=== PATIENT | male | born 1950 | race Caucasian/White ===

== ENCOUNTER 2018-09-09 08:53 | Day surgery (SDC) | payer MEDICARE, BC ==
[~2018-09-09] VITALS: Ht 177.8 cm; Wt 86.2 kg
[2018-09-09] VITALS (8 sets, daily range): BP systolic 108–128; BP diastolic 58–74
[~2018-09-09 08:53] MED LIST: ALLOPURINOL100 M1 ORAL; AMLODIPINE BESYL5 MG ORAL; ASPIR-LOW81 MG ORAL; CRESTOR20 MG ORAL; LISINOPRIL20 MG ORAL; NORCO 5-325 TA1 EACH ORAL; SYNTHROID25 MCG ORAL
[2018-09-09] MEDS ORDERED: ceFAZolin sod 2 GM in D5W 110 ML IV ONE (09:15)
--- NOTE | 2018-09-09 09:15 | History & Physical ---
History of Present Illness General Date patient seen: Sep 09, 2018 Present Illness HPI 68 year old male seen prior in office 05/25/18 for evaluation of left groin bulge. patient states that approximately 6 months prior to office visit he noted a growing left groin bulge. mild discomfort but fairly asymptomatic. no n/v/f/c. no obstructive symptoms. went to PCP who identified a left inguinal hernia. referred to Dr. Lambert for evaluation. Allergies: Coded Allergies: No Known Allergies (Verified Allergy, Mild, 12/18/08) Medication History Scheduled Allopurinol* (Allopurinol*), 100 MG ORAL BID, (Reported) Amlodipine Besylate* (Amlodipine Besylate*), 5 MG ORAL DAILY, (Reported) Aspirin* (Aspir-Low*), 81 MG ORAL DAILY, (Reported) Levothyroxine Sodium* (Synthroid*), 50 MCG ORAL DAILY, (Reported) Lisinopril (Lisinopril*), 20 MG ORAL BID, (Reported) Rosuvastatin Calcium* (Crestor*), 20 MG ORAL DAILY, (Reported) Scheduled PRN Hydrocodone Bit/Acetaminophen 5-325* ([place] 5-325*), 1 TAB ORAL jason PRN for For Pain, (Reported) Patient History History Provided By: Patient, Medical Record, PMD Healthcare decision maker N Resuscitation status Advanced Directive on File Past Medical/Surgical History Past Medical/Surgical History: (1) Left inguinal hernia Review of Systems Review of Symptoms General ROS: no weight loss or fever Psychological ROS: no depression or mood changes, no memory loss Ophthalmic ROS: no visual changes or eye irritation ENT ROS: no nasal congestion, hearing loss, dizziness Allergy and Immunology ROS: no allergic symptoms or urticaria Hematological and Lymphatic ROS: no swollen glands, unusual bleeding or bruising Endocrine ROS: no polyuria, polydipsia, weight changes, temperature intolerance Respiratory ROS: no cough, shortness of breath, or wheezing Cardiovascular ROS: no chest pain or dyspnea on exertion Gastrointestinal ROS: denies abdominal pain, bright red blood in stool. Musculoskeletal ROS: no myalgias or arthralgias Neurological ROS: no TIA or stroke symptoms Dermatological ROS: no new or changing skin lesions, rashes or pruritis Physical Exam Physical Exam General appearance: alert, cooperative, no distress, appears stated age Head: Normocephalic, without obvious abnormality, atraumatic Eyes: conjunctivae/corneas clear. PERRL, EOM's intact. Fundi benign Throat: Lips, mucosa, and tongue normal. Teeth and gums normal Neck: supple, symmetrical, trachea midline, no adenopathy, thyroid: not enlarged, symmetric, no tenderness/mass/nodules, no carotid bruit and no JVD Lungs: clear to auscultation bilaterally Heart: regular rate and rhythm, S1, S2 normal, no murmur, click, rub or gallop Abdomen: soft, non-tender. Bowel sounds normal. No masses, no organomegaly. reducible left inguinal hernia Extremities: extremities normal, atraumatic, no cyanosis or edema Pulses: 2+ and symmetric Skin: Skin color, texture, turgor normal. No rashes or lesions Neurologic: Grossly normal Assessment/Plan Problem List: (1) Left inguinal hernia Assessment & Plan: reducible left inguinal hernia plan for laparoscopic repair laparoscopic left inguinal hernia repair with mesh. possible right. npo iv fluids pre op abx consent ICD Codes: K40.90 - Unilateral inguinal hernia, without obstruction or gangrene , not specified as recurrent SNOMED: [id number] [facility] Hospital declaration INPATIENT level of care is warranted for this patient because patient is a 89 year old with who presents with suspicion of . I have a high level of concern because . Patient is at high risk for . Plan of care/treatment include . Patient care is expected to be greater than 2 midnights. OBSERVATION level of care is warranted for this patient. Patient is a 89 year old with who presents with . Patient will be admitted for 1 midnight, but if additional night(s) is/are necessary, patient will be converted to inpatient status for the entire hospitalization Disposition: Once the patient is stable to leave the hospital, I anticipate the patient will likely be discharged to the following environment: Estimated discharge date: I spent 70 minutes on this patient's case, and minutes was dedicated to counseling and/or care coordination. MIPS (Merit-based Incentive Payment System) Applicable CPT: 59246, 00333 CHECK ALL THAT ARE MET: Measure #5 (CHF): All ages. Prescribe HEIDI/ARB upon discharge for patients with left ventricular systolic dysfunction. If not, the reason is clearly documented in the medical chart. Measure #8 (CHF): All ages. Prescribe a beta martina upon discharge for patients with left ventricular systolic dysfunction. If not, the reason is clearly documented in the medical chart. Measure #47 Advance care plan or surrogate decision maker documented in the medical record. Measure #130 The provider has documented, updated, or reviewed the patients current medication list and has documented it in the patients note. Measure #374 (All): Send report to referring provider. Measure #407(Sepsis due to MSSA bacteremia): Age 18+ Patient treated with a beta-lactam antibiotic (Nafcillin, Oxacillin or Cefazolin) as definitive therapy. MEDICAL COMPLEXITY High complexity medical decision making (need 2/3 categories) Problem - need 4 points Acute/new problem with new plan for workup (4 points, 1 max) Acute/new problem without additional workup (3 points, 1 max) Unstable chronic problem actively being managed (2 point each, 2 max) Stable chronic problem actively being managed (1 point each, 2 max) Self-limited/transient process (constipation, muscle ache, etc) (1 point each , 2 max) Data - need 4 points Reviewed labs/imaging studies (1 points, 2 max) Independent review of imaging (EKG, xrays, etc) (2 points, 2 max) Discussed case with consult/other MD/RN (2 points, 2 max) High Risk - qualify if have one of the following: Severe exacerbation of acute problem, acute mental status change, IV narcotics , monitoring drug levels (vancomycin, INR, tacrolimus etc) Jean Lambert Sep 09, 2018 09:15
--- NOTE | 2018-09-09 09:17 | Pre-Procedure Note/Attestation ---
Pre-Procedure Note/Attestation Complete Prior to Procedure Planned Procedure: left Procedure Narrative: laparoscopic left inguinal hernia repair with mesh, possible right Indications for Procedure Pre-Operative Diagnosis: left inguinal hernia Attestation I attest that I discussed the nature of the procedure; its benefits; risks and complications; and alternatives (and the risks and benefits of such alternatives ), prior to the procedure, with the patient (or the patient's legal physician representative). I attest that, if there was a reasonable possibility of needing a blood transfusion, the patient (or the patient's legal physician representative) was given the [facility] standardized written summary, pursuant to the Bharathi Cesia Blood Safety Act ([place] Health and Safety Code # 1645, as amended). I attest that I re-evaluated the patient just prior to the surgery and that there has been no change in the patient's H&P, except as documented below: Jean Lambert Sep 09, 2018 09:17
[2018-09-09 09:47] LABS: BASOPHILS % (AUTO) 1.2 % (0.0-2.0); EOSINOPHILS % (AUTO) 3.7 % (0.0-3.0); HEMATOCRIT 44.9 % (42.0-52.0); HEMOGLOBIN 15.1 G/DL (14.2-18.0); LYMPHOCYTES % (AUTO) 22.7 % (20.0-45.0); MEAN CORPUSCULAR VOLUME 88 FL (80-99); MONOCYTES % (AUTO) 8.1 % (1.0-10.0); NEUTROPHILS % (AUTO) 64.3 % (45.0-75.0); PLATELET COUNT 232 K/UL (150-450); RED BLOOD COUNT 5.09 M/UL (4.70-6.10); RED CELL DISTRIBUTION WIDTH 12.3 % (11.6-14.8)
[2018-09-09 09:59] LABS: ANION GAP 9 mmol/L (5-15); BLOOD UREA NITROGEN 27 mg/dL (7-18); CALCIUM 9.5 MG/DL (8.5-10.1); CARBON DIOXIDE 26 MMOL/L (21-32); CHLORIDE 104 MMOL/L (98-107); CREATININE 1.5 MG/DL (0.55-1.30); POTASSIUM 4.4 MMOL/L (3.5-5.1); SODIUM 138 MMOL/L (136-145)
[2018-09-09 10:09] LABS: INR 1.1 (0.9-1.1)
[2018-09-09] MEDS ORDERED: Lidocaine 1% MPF 10mg/ml 5ml ONE (10:25)
[2018-09-09] MEDS ORDERED: Midazolam 2mg/2ml Inj ONE (10:25)
[2018-09-09] MEDS ORDERED: Propofol 200mg/20ml IV ONE (10:25)
[2018-09-09] MEDS ORDERED: fentaNYL 100 mcg/2 mL IV ONE ×2 (10:25→10:26)
--- NOTE | 2018-09-09 10:55 | Anethesia Preoperative Eval ---
Anesthesia Pre-op PMH/ROS General Date of Evaluation: Sep 09, 2018 Time of Evaluation: 10:55 Anesthesiologist: Lena Atwood CRNA ASA Score: ASA 2 Mallampati Score Class I : Soft palate, uvula, fauces, pillars visible Class II: Soft palate, uvula, fauces visible Class III: Soft palate, base of uvula visible Class IV: Only hard plate visible Mallampati Classification: Class II Surgeon: Petra Diagnosis: LEFT inguinal hernia Surgical Procedure: Laparoscopic left inguinal hernia repair with mesh Anesthesia History: none Social History: smoking Family History: no anesthesia problems Allergies: Coded Allergies: No Known Allergies (Verified Allergy, Mild, 12/18/08) Medications: see eMAR Patient NPO?: Yes NPO Date: Sep 09, 2018 NPO Time: 00:00 Past Medical History Cardiovascular: Reports: HTN; Denies: CAD, MS, valve dz, arrhythmia, other Pulmonary: Denies: asthma, COPD, MARIS, other Gastrointestinal/Genitourinary: Reports: GERD; Denies: CRI, ESRD, other Neurologic/Psychiatric: Reports: CVA; Denies: dementia, depression/anxiety, TIA, other Endocrine: Reports: hypothyroidism; Denies: DM, steroids, other HEENT: Reports: other - hearing loss; Denies: cataract (L), cataract (R), glaucoma, [place] (L), [place] (R) Hematology/Immune: Denies: anemia, DVT, bleeding disorder, other Musculoskeletal/Integumentary: Reports: other - Gout, ankle fracture; Denies: OA, RA, DJD, DDD, edema PMH Narrative: as above PSxH Narrative: ankle ORIF Anesthesia Pre-op Phys. Exam Physician Exam Last Vital Signs Date Time Temp Pulse Resp B/P (MAP) Pulse Ox O2 Delivery O2 Flow Rate FiO2 09/09/18 09:34 Room Air 09/09/18 09:31 97.6 80 20 117/74 96 Constitutional: NAD Neurologic: CN 2-12 intact Cardiovascular: RRR Respiratory: CTA Gastrointestinal: S/NT/ND Airway Exam Mallampati Score: Class III MO: full Neck: no limitations TMD: 3 FB ROM: full Teeth: broken Dentures: no upper, no lower Anesthesia Pre-op A/P Labs Hematology Test 09/09/18 09:35 White Blood Count 10.0 K/UL (4.8-10.8) Red Blood Count 5.09 M/UL (4.70-6.10) Hemoglobin 15.1 G/DL (14.2-18.0) Hematocrit 44.9 % (42.0-52.0) Mean Corpuscular Volume 88 FL (80-99) Mean Corpuscular Hemoglobin 29.8 PG (27.0-31.0) Mean Corpuscular Hemoglobin Concent 33.7 G/DL (32.0-36.0) Red Cell Distribution Width 12.3 % (11.6-14.8) Platelet Count 232 K/UL (150-450) Mean Platelet Volume 6.7 FL (6.5-10.1) Neutrophils (%) (Auto) 64.3 % (45.0-75.0) Lymphocytes (%) (Auto) 22.7 % (20.0-45.0) Monocytes (%) (Auto) 8.1 % (1.0-10.0) Eosinophils (%) (Auto) 3.7 % (0.0-3.0) H Basophils (%) (Auto) 1.2 % (0.0-2.0) Coagulation Test 09/09/18 09:35 Prothrombin Time 11.2 SEC (9.30-11.50) Prothromb Time International Ratio 1.1 (0.9-1.1) Activated Partial Thromboplast Time 28 SEC (23-33) Chemistry Test 09/09/18 09:35 Sodium Level 138 MMOL/L (136-145) Potassium Level 4.4 MMOL/L (3.5-5.1) Chloride Level 104 MMOL/L (98-107) Carbon Dioxide Level 26 MMOL/L (21-32) Anion Gap 9 mmol/L (5-15) Blood Urea Nitrogen 27 mg/dL (7-18) H Creatinine 1.5 MG/DL (0.55-1.30) H Estimat Glomerular Filtration Rate 46.3 mL/min (>60) Glucose Level 116 MG/DL (74-106) H Calcium Level 9.5 MG/DL (8.5-10.1) Studies Pre-op Studies: EKG - NSR Risk Assessment & Plan Assessment: ASA 2, ok to proceed Plan: GETA Status Change Before Surgery: No Pre-Antibiotics Drug: TBD Lena Atwood CRNA Sep 09, 2018 10:55
[2018-09-09] MEDS ORDERED: Bupivacaine w/Epi 0.5% 30ml Vial INJ ONE (10:58)
[2018-09-09] MEDS ORDERED: Bacitracin 50000 Units Vial ONE (10:59)
[2018-09-09] MEDS ORDERED: LR 1000ml ONE (11:00)
[2018-09-09] MEDS ORDERED: Sterile Water Irrig 1000ml IRRIG ONE (11:00)
[2018-09-09] MEDS ORDERED: Ketorolac 30mg Inj ONE (11:00)
[2018-09-09] MEDS ORDERED: Glycopyrrolate 0.2mg/ml 1ml Vial ONE (11:00)
[2018-09-09] MEDS ORDERED: NS Irrig 1000ml ONE (11:00)
[2018-09-09] MEDS ORDERED: Succinylcholine 20mg/ml 10ml vial ONE (11:07)
[2018-09-09] MEDS ORDERED: Rocuronium Bromide 50mg/5ml Inj IV ONE (11:07)
[2018-09-09] MEDS ORDERED: Neostigmine 1mg/ml 10ml Inj ONE (11:07)
--- NOTE | 2018-09-09 12:46 | Immediate Post-Op Evaluation ---
Immediate Post-Op Evalulation Immediate Post-Op Evalulation Procedure: LEFT inguinal hernia repair with mesh, laparoscopic Date of Evaluation: Sep 09, 2018 IV Fluids: LR 1000 ml Estimated Blood Loss: minimal Blood Pressure Systolic: 128 Blood Pressure Diastolic: 72 Pulse Rate: 82 Respiratory Rate: 12 O2 Sat by Pulse Oximetry: 99 Temperature (Fahrenheit): 97.0 Pain Score (1-10): 1 Nausea: No Vomiting: No Complications none Patient Status: awake, reacts, patent Hydration Status: adequate Drug: cefazolin 2 gm IV Given Within 1 Hr of Incision: Yes Time Given: 11:40 Lena Atwood CRNA Sep 09, 2018 12:46
--- NOTE | 2018-09-09 12:58 | Brief Operative Note ---
Immediate Post Operative Note Operative Note Pre-op Diagnosis: left inguinal hernia Procedure: laparoscopic left inguinal hernia repair with mesh Post-op Diagnosis: same as pre-op Surgeon: larry Anesthesiologist: Lena FERNANDES Anesthesia: general, local Specimen: none Complications: none Condition: stable Fluids: see records Estimated Blood Loss: minimal Drains: none Implant(s) used?: Yes - bard left large 3d mesh Jean Lambert Sep 09, 2018 12:58
[2018-09-09] MEDS ORDERED: Tylenol #3 tab (300mg/30mg) ORAL PRN (13:00)
[2018-09-09] MEDS ORDERED: HYDROmorphone 1mg/ml Carpuject SUBQ PRN (13:00)
[2018-09-09] MEDS ORDERED: D5 1/2NS 1,000 ML IV SCH (13:00)
[2018-09-09] MEDS ORDERED: Metoclopramide 10mg/2ml Inj IVP PRN (13:00)
[2018-09-09] MEDS ORDERED: HYDROcodone/Acetamin 5/325 tab ORAL PRN (13:00)
[2018-09-09] MEDS ORDERED: Hydromorphone 0.5mg/0.5ml inj IVP PRN (13:00)
--- NOTE | 2018-09-09 14:05 | 48 Hour Post Anesthesia Eval ---
Post Anesthesia Evaluation Procedure: LEFT inguinal hernia repair with mesh, laparoscopic Date of Evaluation: Sep 09, 2018 Time of Evaluation: 14:03 Blood Pressure Systolic: 128 0: 68 Pulse Rate: 76 Respiratory Rate: 20 Temperature (Fahrenheit): 97.6 O2 Sat by Pulse Oximetry: 98 Airway: patent Nausea: No Vomiting: No Pain Intensity: 1 Hydration Status: adequate Cardiopulmonary Status: stable Mental Status/LOC: patient returned to baseline Follow-up Care/Observations: n/a Post-Anesthesia Complications: none Follow-up care needed: ready to discharge Oskar Massey MD Sep 09, 2018 14:05
--- NOTE | 2018-09-09 18:45 | Operative Note - Dictated ---
DATE OF OPERATION: 09/09/2018 PREOPERATIVE DIAGNOSIS: Left inguinal hernia, initial reducible. POSTOPERATIVE DIAGNOSIS: Fcfsqpyr-sm-eheom size left inguinal hernia, indirect, reducible. OPERATION PERFORMED: Laparoscopic left inguinal hernia repair with mesh. ATTENDING SURGEON: Jean Lambert M.D. FLAVOR MAKER: None. ANESTHESIOLOGIST: Lena Atwood CRNA. ANESTHESIA: General CRYSTAL GROWER. ESTIMATED BLOOD LOSS: Minimal. IV FLUIDS: Please see Anesthesia records. COMPLICATIONS: None. DRAINS: None. SPECIMENS: None. WOUND CLASSIFICATION: Class I. IMPLANTS: Bard 3DMax, large size left, lot number [id number], reference #[id number], date of expiration 04/19/2023 as well as a Bard SorbaFix absorbable fixation system 30 packs, reference number #[id number], lot [id number], date of expiration 05/20/2020. INDICATIONS FOR PROCEDURE: The patient is a very pleasant 68-year-old male who was kindly referred to myself for evaluation of a left inguinal hernia. The patient states that approximately 6 months prior to being seen the in the office, he had noticed a left groin bulge, which was causing mild discomfort, but otherwise asymptomatic. On evaluation, he was identified to have a reducible left inguinal hernia, which indicated and recommended left inguinal hernia. Repair was indicated and recommended. The patient expressed understanding and consented to procedure, which was scheduled for 09/09/2018. OPERATIVE NOTE: The patient was taken to the operating room and placed on the operating table in supine position bilateral arms tucked. All bony prominences were well padded. SCDs were placed. Preoperative time-out was taken identifying the patient, procedure, operative staff, and surgical staff. The patient was given 2 g Ancef IV one hour prior to cut time. General anesthesia was induced. The patient was intubated. A Sharp catheter was inserted using standard sterile technique. The abdomen was clipped, prepped, and draped in standard surgical fashion. The left inguinal hernia was identified with bulging and reduced once the patient was comfortable. A local anesthetic was infiltrated to all skin incision port sites throughout the procedure for the patient's comfort. An infraumbilical incision was made using a fresh #11 scalpel. Incision was carried down to the fascia, which was elevated and incised. Entry into the abdomen was obtained using the open Oj technique. The laparoscope was inserted and the abdomen was insufflated to 12 to 15 mmHg. The patient tolerated the insufflation well. Laparoscope was inserted and the abdomen was inspected. The right upper quadrant was otherwise normal with some colon overlying the right lobe of the liver. The left upper quadrant identified a healthy left lobe of the liver and stomach. There was no right inguinal hernia identified. Pelvis was small and normal and in the left groin, there was a moderate-sized indirect left inguinal hernia with some sliding colon noted identified into an easily obtainable to small bowel. At this time, secondary trocars were placed under direct visualization beginning with a 5 mm right midabdominal port followed by 5 mm left midabdominal port. Approximately 2 cm above the hernia defect, an incision was made in the peritoneum, which was carried medially to the medial umbilical ligament and laterally towards the anterior superior iliac spine. A peritoneal flap was made and dissected medially to the pubic tubercle, Silverio's ligament and not too extensively laterally. At this time, the large hernia sac was slowly reduced and gentle dissection and electrocautery were used to dissect out the sac. The sac was completely reduced and once it was, the cord structures were easily identified and protected. At this time, hemostasis was noted and hernia was completely reduced and a large defect was identified with cord structures being noted. A Bard large left-sided mesh was inserted into the operative field and placed into appropriate positioning. Once this was placed, all hernia defect sites were appropriately covered and hernia mesh placement was satisfactory. Bard absorbable tacks were used to tack the mesh in the Silverio's ligament and medially. Following this, the peritoneum was reapproximated using the Bard absorbable tackers as well. At this time, satisfactory hernia repair was identified. We began the conclusion of our procedure. The abdomen was allowed to desufflate and secondary trocars were removed under direct visualization. The umbilical trocar site was removed. The umbilical trocar site and fascia was closed using a [id number] #0 Vicryl suture. The remaining skin incisions were all cleansed and reapproximated using 4-0 Monocryl subcutaneous interrupted sutures. Skin glue and Steri-Strips were applied. Both testicles were identified in the scrotal sac at the end of procedure. The patient tolerated the procedure well, was extubated, and taken to the postanesthetic care unit in stable condition. Jean Lambert M.D. DR: GIANNI JOB#: [id number] CC:
== END 2018-09-09 14:50 | disposition home or self-care (01) ==
LOC: SUR 08:53
DX: K40.90 Unilateral inguinal hernia, without obstruction or gangrene, not specified as recurrent (principal); K21.9 Gastro-esophageal reflux disease without esophagitis; I10 Essential (primary) hypertension; E03.9 Hypothyroidism, unspecified; M10.9 Gout, unspecified; H91.90 Unspecified hearing loss, unspecified ear; Z86.73 Personal history of transient ischemic attack (TIA), and cerebral infarction without residual deficits
CPT/HCPCS: 36415; 49650; 80048; 85025; 85610; 85730; 93005; C1781; J0330; J1885; J2250; J2405; J2704; J2710; J3010; 94003; 94150

== ENCOUNTER 2019-03-02 10:58 | Inpatient (IN) | payer MEDICARE, BC ==
[~2019-03-02] VITALS: Ht 177.8 cm; Wt 86.2 kg
--- NOTE | 2019-03-02 11:15 | NUR ---
ED Nurse Note: PT FROM HOME CAME IN DUE TO SOB LAST WEDNESDAY NIGHT AND WAS REFERRED BY DR LOPEZ TO GO TO ED FOR EVAL. DENIES CP OR SOB AT THIS TIME. PT IS AAO X4, AMBULATORTY WITH NON LABORED BREATHING. LUNGS ARE CLEAR. VSS.
[2019-03-02 11:36] VITALS: BP 134/62
[2019-03-02 12:28] LABS: EOSINOPHILS % (AUTO) 2.7 % (0.0-3.0); HEMATOCRIT 46.2 % (42.0-52.0); HEMOGLOBIN 15.5 G/DL (14.2-18.0); LYMPHOCYTES % (AUTO) 18.8 % (20.0-45.0); MEAN CORPUSCULAR VOLUME 90 FL (80-99); NEUTROPHILS % (AUTO) 69.6 % (45.0-75.0); PLATELET COUNT 218 K/UL (150-450); RED BLOOD COUNT 5.16 M/UL (4.70-6.10); RED CELL DISTRIBUTION WIDTH 12.8 % (11.6-14.8); WHITE BLOOD COUNT 10.8 K/UL (4.8-10.8)
[2019-03-02 12:30] LABS: ANION GAP 7 mmol/L (5-15); BLOOD UREA NITROGEN 25 mg/dL (7-18); CALCIUM 9.5 MG/DL (8.5-10.1); CARBON DIOXIDE 27 MMOL/L (21-32); CHLORIDE 105 MMOL/L (98-107); CREATININE 1.4 MG/DL (0.55-1.30); POTASSIUM 4.3 MMOL/L (3.5-5.1); SODIUM 139 MMOL/L (136-145)
--- NOTE | 2019-03-02 12:30 | NUR ---
ED Nurse Note: [employer] AT THE BED SIDE FOR CXR.
[2019-03-02 12:44] LABS: ALANINE AMINOTRANSFERASE 23 U/L (12-78); ALBUMIN 3.3 G/DL (3.4-5.0); ALBUMIN/GLOBULIN RATIO 0.8 (1.0-2.7); ALKALINE PHOSPHATASE 52 U/L (46-116); ASPARTATE AMINO TRANSFERASE 22 U/L (15-37); BILIRUBIN,TOTAL 0.4 MG/DL (0.2-1.0); CREATINE KINASE 97 U/L (26-308)
--- NOTE | 2019-03-02 13:10 | NUR ---
SPOKE TO [facility] REGSYED THE V/Q SCAN WILL TAKE 2 TO [address] H[address] TO GET ISOTOPE DR CALDERON HAS BEEN NOTIFIED
[2019-03-02 13:13] VITALS: BP 134/83
--- NOTE | 2019-03-02 13:13 | NUR ---
ED Nurse Note: PT IS CALM WITH NO DISTRESS. STILL DENIES ANY CP. PT IS AWARE OF HIS ADMISSION. VSS WILL CONTINUE TO ASSESS.
--- NOTE | 2019-03-02 13:28 | Diagnostic Imaging Report ---
Indication: Dyspnea Comparison: 12/18/2008 A single view chest radiograph was obtained. Findings: Basilar densities are present slightly worse on the right likely atelectasis. Lung volumes are low bilaterally. Heart size is borderline. IMPRESSION: Mild basal atelectasis
--- NOTE | 2019-03-02 14:35 | NUR ---
ED Nurse Note: REPORT GIVEN TO GINO KIM CHARGE OF TELEMETRY. ENDORSED NM VQ SCAN THAT IT WILL BE DONE IN THEIR UNIT D/T GETTING OF ISOTOPE. STATES NO BED YET. ER CHARGE NURSE WAS NOTIFIED.
--- NOTE | 2019-03-02 14:46 | Emergency Room Report ---
History of Present Illness General Chief Complaint: Dyspnea/Respdistress Source: Patient Present Illness HPI 68 yo Male presents ED for evaluation. Patient walks in for evaluation of shortness of breath. States that on Wednesday when he was going to bed he felt short of breath lasted for several minutes then resolved. States he has not felt short of breath since. Was seen by PMD yesterday and referred to ED for further evaluation. Denies shortness of breath now. Denies chest pain. Denies leg swelling. No other aggravating relieving factors. Denies any other associated symptoms Allergies: Coded Allergies: No Known Allergies (Verified Allergy, Mild, 12/18/08) Patient History Past Medical History: HTN, CVA/TIA Pertinent Family History: none Social History: Denies: smoking, alcohol use, drug use Immunizations: UTD Reviewed Nursing Documentation: PMH: Agreed; PSxH: Agreed Nursing Documentation-PMH Hx Cardiac Problems: Yes Hx Hypertension: Yes Hx Cancer: No Hx Gastrointestinal Problems: Yes Hx Neurological Problems: Yes Hx Cerebrovascular Accident: Yes - 1994 Review of Systems All Other Systems: negative except mentioned in HPI Physical Exam Vital Signs Date Time Temp Pulse Resp B/P (MAP) Pulse Ox O2 Delivery O2 Flow Rate FiO2 03/02/19 11:05 97.9 84 22 148/84 (105) 95 Room Air Sp02 EP Interpretation: reviewed, normal General Appearance: no apparent distress, alert, GCS 15, non-toxic Head: normocephalic, atraumatic Eyes: bilateral eye normal inspection, bilateral eye PERRL ENT: hearing grossly normal, normal pharynx, no angioedema, normal voice Neck: full range of motion, supple/symm/no masses Respiratory: chest non-tender, lungs clear, normal breath sounds, speaking full sentences Cardiovascular #1: regular rate, rhythm, no edema Cardiovascular #2: 2+ carotid (R), 2+ carotid (L), 2+ radial (R), 2+ radial (L) , 2+ dorsalis pedis (R), 2+ dorsalis pedis (L) Gastrointestinal: normal bowel sounds, non tender, soft, non-distended, no guarding, no rebound Rectal: deferred Genitourinary: normal inspection, no CVA tenderness Musculoskeletal: back normal, gait/station normal, normal range of motion, non- tender Neurologic: alert, oriented x3, responsive, motor strength/tone normal, sensory intact, speech normal Psychiatric: judgement/insight normal, memory normal, mood/affect normal, no suicidal/homicidal ideation Reflexes: 3+ bicep (R), 3+ bicep (L), 3+ tricep (R), 3+ tricep (L), 3+ knee (R) , 3+ knee (L) Lymphatic: no adenopathy Medical Decision Making Diagnostic Impression: Primary Impression: ACS (acute coronary syndrome) Additional Impression: Dyspnea Qualified Codes: R06.00 - Dyspnea, unspecified ER Course Hospital Course 68-year-old male presents ED complaining of shortness of breath Differential diagnoses include: WI/unstable angina, contusion, muscle strain, PTX, rib fracture Clinical course Patient placed on stretcher. on concierge receptionist. After initial history and physical I ordered labs, EKG, chest x-ray, labs reviewed- no leukocytosis, hb/hct stable, electrolytes ok, trop 0.191 EKG - NSR, twave inversions in lateral leads interpreted by me Chest x-ray- bilateral atelectasis, R>> L Given aspirin. Discussed findings with patient. Discussed findings with Dr. Sanchez. VQ scan ordered I. I feel this is a highly complex case requiring extensive working including EKG/Rhythm strip, Xray/CT/US, Blood/urine lab work, repeat exams while in ED, and administration of strong opiates/narcotics for pain control, admission to hospital or close patient follow up. Diagnosis - ACS, dyspnea admitted to telemetry in serious condition Labs Test 03/02/19 12:02 White Blood Count 10.8 K/UL (4.8-10.8) Red Blood Count 5.16 M/UL (4.70-6.10) Hemoglobin 15.5 G/DL (14.2-18.0) Hematocrit 46.2 % (42.0-52.0) Mean Corpuscular Volume 90 FL (80-99) Mean Corpuscular Hemoglobin 30.1 PG (27.0-31.0) Mean Corpuscular Hemoglobin Concent 33.6 G/DL (32.0-36.0) Red Cell Distribution Width 12.8 % (11.6-14.8) Platelet Count 218 K/UL (150-450) Mean Platelet Volume 7.1 FL (6.5-10.1) Neutrophils (%) (Auto) 69.6 % (45.0-75.0) Lymphocytes (%) (Auto) 18.8 % (20.0-45.0) Monocytes (%) (Auto) 8.0 % (1.0-10.0) Eosinophils (%) (Auto) 2.7 % (0.0-3.0) Basophils (%) (Auto) 1.0 % (0.0-2.0) Sodium Level 139 MMOL/L (136-145) Potassium Level 4.3 MMOL/L (3.5-5.1) Chloride Level 105 MMOL/L (98-107) Carbon Dioxide Level 27 MMOL/L (21-32) Anion Gap 7 mmol/L (5-15) Blood Urea Nitrogen 25 mg/dL (7-18) Creatinine 1.4 MG/DL (0.55-1.30) Estimat Glomerular Filtration Rate 50.1 mL/min (>60) Glucose Level 107 MG/DL (74-106) Calcium Level 9.5 MG/DL (8.5-10.1) Total Bilirubin 0.4 MG/DL (0.2-1.0) Aspartate Amino Transf (AST/SGOT) 22 U/L (15-37) Alanine Aminotransferase (ALT/SGPT) 23 U/L (12-78) Alkaline Phosphatase 52 U/L (46-116) Total Creatine Kinase 97 U/L (26-308) Creatine Kinase MB 2.0 NG/ML (0.0-3.6) Creatine Kinase MB Relative Index 2.0 Troponin I 0.191 ng/mL (0.000-0.056) Pro-B-Type Natriuretic Peptide 806 pg/mL (0-125) Total Protein 7.2 G/DL (6.4-8.2) Albumin 3.3 G/DL (3.4-5.0) Globulin 3.9 g/dL Albumin/Globulin Ratio 0.8 (1.0-2.7) EKG Diagnostic Results Rate: normal Rhythm: NSR ST Segments: other - twave inversions in lateral leads ASA given to the pt in ED: Yes Rhythm Strip Diag. Results EP Interpretation: yes Rhythm: NSR, no PVC's, no ectopy Chest X-Ray Diagnostic Results Chest X-Ray Diagnostic Results : Chest X-Ray Ordered: Yes # of Views/Limited/Complete: 1 View Indication: Shortness of Breath EP Interpretation: Yes Interpretation: no consolidation, no pneumothorax, other - bilateral atecltasis R >> L Impression: Other - atelectasis Electronically Signed by: Electronically signed by Thee Connors MD Last Vital Signs Date Time Temp Pulse Resp B/P (MAP) Pulse Ox O2 Delivery O2 Flow Rate FiO2 03/02/19 13:13 98.2 76 19 134/83 100 Room Air Status: improved Disposition: ADMITTED INPATIENT Condition: Serious Referrals: Issa Dias MD (PCP) Thee Connors MD Mar 02, 2019 14:46
--- NOTE | 2019-03-02 15:00 | NUR ---
ED Nurse Note: PT TRANSFERRED TO TELEMETRY UNIT VIA GURNEY. VSS. ALL BELONGINGS SENT.
[2019-03-02] MEDS ORDERED: HYDROcodone/Acetamin 5/325 tab ORAL PRN (15:15)
--- NOTE | 2019-03-02 15:34 | History & Physical ---
History and Physical History & Physicial episodic SOB ? chest tightness PH Remote CVA HTN HLP DM2 now in ER mild elevation Troponin ? Right basal crackles Dx Pulm emboli CHF CAD Plan per orders Dr Sutherland to jenny echo V/Q Scan # [id number] Issa Dias MD Mar 02, 2019 15:34
--- NOTE | 2019-03-02 15:51 | NUR ---
NURSE NOTES: patient received at 1515 pm. all belonging list reviewed.patient off the unit 15 min after arrival for VQ scan DR. Dias and charge nurse notified
--- NOTE | 2019-03-02 16:02 | NUR ---
STAT V/Q Scan complete.
--- NOTE | 2019-03-02 16:30 | Diagnostic Imaging Report ---
Indication: Chest pain Technique: A ventilation/perfusion scan was performed. Ventilation was performed utilizing 40 mCi of Technetium 99m-DTPA. Perfusion was performed with 5.1 mCi of technetium 99m-MAA injected intravenously. Multiple side by side projections obtained. Findings: Ventilation is relatively homogeneous. No defects are identified. Perfusion is relatively homogeneous. No defects are identified. Impression: Low probability for pulmonary embolus
[2019-03-02 16:57] VITALS: BP 148/88
[2019-03-02] MEDS: Lisinopril 20mg tab ORAL SCH (17:04)
--- NOTE | 2019-03-02 19:10 | NUR ---
NURSE NOTES: Received pt and report from JUDY Carlson. Observed pt resting in bed with both eyes open and watching television. night monitor is in placed. Pt pulled out IV, stating that he doesn't need it. Educated pt that he needs an IV access while he is in the hospital in case of an emergency. Pt agreed to put another IV in. Bed is in the lowest position and locked, call light within reach. No signs and symptoms of acute distress noted at this time. Will continue plan of care.
--- NOTE | 2019-03-02 19:23 | NUR ---
HAND-OFF: Report given to YUSRA KIM.
[2019-03-02 20:00] VITALS: BP 146/65
--- NOTE | 2019-03-02 20:21 | Cardiology Progress Note ---
Assessment/Plan Assessment/Plan chest pain with abn cardia enzyme / acs sever coronary artery calcification (7000 in 2014 ebct at [facility]) !!!! Aortic stenosis previoauly mode in 2016 likey progressed pvd with decreased pulses bilat loer ext hyper lipidemai his of tobacco use do hs of cva need ectorin bb , statin need echo to see if has progressed will need serila enzyme ekg may need further tesitng if develops cp will need nitrates may need vascular eval may need invasive testing if he agrees to [id number] Objective Last 24 Hour Vital Signs Date Time Temp Pulse Resp B/P (MAP) Pulse Ox O2 Delivery O2 Flow Rate FiO2 03/02/19 17:04 148/88 03/02/19 16:57 97.6 85 17 148/88 (108) 94 03/02/19 16:00 77 03/02/19 15:49 Room Air 03/02/19 15:00 97.9 80 15 128/87 100 Room Air 03/02/19 13:13 98.2 76 19 134/83 100 Room Air 03/02/19 11:36 97.9 82 16 134/62 98 Room Air 03/02/19 11:15 84 22 Room Air 03/02/19 11:05 97.9 84 22 148/84 (105) 95 Room Air Laboratory Tests Test 03/02/19 12:02 White Blood Count 10.8 K/UL (4.8-10.8) Red Blood Count 5.16 M/UL (4.70-6.10) Hemoglobin 15.5 G/DL (14.2-18.0) Hematocrit 46.2 % (42.0-52.0) Mean Corpuscular Volume 90 FL (80-99) Mean Corpuscular Hemoglobin 30.1 PG (27.0-31.0) Mean Corpuscular Hemoglobin Concent 33.6 G/DL (32.0-36.0) Red Cell Distribution Width 12.8 % (11.6-14.8) Platelet Count 218 K/UL (150-450) Mean Platelet Volume 7.1 FL (6.5-10.1) Neutrophils (%) (Auto) 69.6 % (45.0-75.0) Lymphocytes (%) (Auto) 18.8 % (20.0-45.0) L Monocytes (%) (Auto) 8.0 % (1.0-10.0) Eosinophils (%) (Auto) 2.7 % (0.0-3.0) Basophils (%) (Auto) 1.0 % (0.0-2.0) Sodium Level 139 MMOL/L (136-145) Potassium Level 4.3 MMOL/L (3.5-5.1) Chloride Level 105 MMOL/L (98-107) Carbon Dioxide Level 27 MMOL/L (21-32) Anion Gap 7 mmol/L (5-15) Blood Urea Nitrogen 25 mg/dL (7-18) H Creatinine 1.4 MG/DL (0.55-1.30) H Estimat Glomerular Filtration Rate 50.1 mL/min (>60) Glucose Level 107 MG/DL (74-106) H Calcium Level 9.5 MG/DL (8.5-10.1) Total Bilirubin 0.4 MG/DL (0.2-1.0) Aspartate Amino Transf (AST/SGOT) 22 U/L (15-37) Alanine Aminotransferase (ALT/SGPT) 23 U/L (12-78) Alkaline Phosphatase 52 U/L (46-116) Total Creatine Kinase 97 U/L (26-308) Creatine Kinase MB 2.0 NG/ML (0.0-3.6) Creatine Kinase MB Relative Index 2.0 Troponin I 0.191 ng/mL (0.000-0.056) Pro-B-Type Natriuretic Peptide 806 pg/mL (0-125) H Total Protein 7.2 G/DL (6.4-8.2) Albumin 3.3 G/DL (3.4-5.0) L Globulin 3.9 g/dL Albumin/Globulin Ratio 0.8 (1.0-2.7) L Oni Sutherland MD Mar 02, 2019 20:21
[2019-03-02] MEDS ORDERED: Nitroglycerin Subl 0.4mg tab SL PRN (20:30)
[2019-03-02] MEDS ORDERED: Atorvastatin 80mg tab ORAL SCH (21:00)
--- NOTE | 2019-03-02 21:08 | NUR ---
NURSE NOTES: Informed Dr. Sutherland regarding pt's troponin level of 0.204; no new orders at this time.
[2019-03-02 21:11] LABS: CREATINE KINASE 106 U/L (26-308)
[2019-03-02] MEDS: Metoprolol Tartrate 12.5mg TAB ORAL SCH (21:11)
[2019-03-02 21:38] LABS: APPEARANCE,URINE CLEAR; BILIRUBIN, URINE NEGATIVE (NEGATIVE); COLOR,URINE PALE YELLOW; GLUCOSE, URINE (UA) NEGATIVE (NEGATIVE); KETONES,URINE NEGATIVE (NEGATIVE); LEUKOCYTE ESTERASE ,URINE NEGATIVE (NEGATIVE); NITRITE,URINE NEGATIVE (NEGATIVE); PH,URINE 6 (4.5-8.0); PROTEIN,URINE NEGATIVE (NEGATIVE); UROBILINOGEN,URINE NORMAL MG/DL (0.0-1.0)
[2019-03-03] VITALS: BP 115/69
--- NOTE | 2019-03-03 00:15 | Consultation ---
DATE OF CONSULTATION: 03/02/2019 CARDIOLOGY CONSULTATION CONSULTING PHYSICIAN: Oni Sutherland M.D. REFERRING PHYSICIAN: Issa Dias M.D. REASON FOR REFERRAL: Chest pain and shortness of breath. HISTORY OF PRESENT ILLNESS: This is a middle-aged gentleman, who is known to me from prior evaluation although I have not seen him in approximately 3 years. He reports that on Wednesday night, he had a hard time falling asleep because of shortness of breath every time when he lied down and had a miserable time overnight. Several trials to sleep were unsuccessful. Next, he got amount of sleep, improved the next day. On Wednesday night, he did not have any problems. On Wednesday, he saw Dr. Dias who recommended coming to the hospital. He had several things to do and he got that postponed and eventually came in today to the emergency room because of his prior symptoms. The patient on questioning does indicate that he had some pain in the lateral aspect of his left chest, which he thought it was musculoskeletal in origin, although he is not able to tell if any relieving or exacerbating factors have been noted at that time and subsequently as of Wednesday, he had not experienced that discomfort anymore, neither he had any shortness of breath when he lies down. There is no shortness of breath. No PND. He uses one pillow now. There is no dizziness or lightheadedness on standing. No heart pounding or palpitations. PAST MEDICAL HISTORY: Positive for history of hypertension, hyperlipidemia, hypothyroidism, aortic stenosis of mild degree, extensive pulmonary artery calcification with coronary calcium score of 7000, 99 percentile as of 2013, peripheral vascular disease, and a family history of ischemic heart disease as well as a history of CVA in 1994 that mainly resolved and hypothyroidism as well as ankle surgery. FAMILY HISTORY: Father of myocardial infarction at age 57. SOCIAL HISTORY: He quit smoking in . He drinks alcoholic beverages. No drug use. 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 ALLERGIES: He is not allergic to any medications. REVIEW OF SYSTEMS: GASTROINTESTINAL: Negative. GENITOURINARY: Negative. PULMONARY: Negative. CONSTITUTIONAL: Negative. PHYSICAL EXAMINATION: GENERAL: Shows to be a middle-aged gentleman, in no respiratory distress. NECK: Supple. No jugular venous distention. LUNGS: Clear to auscultation and percussion. CARDIAC: S1 is normal. S2 is normal. Regular rate and rhythm. Systolic ejection murmur is noted. ABDOMEN: Soft, nontender. Positive bowel sounds EXTREMITIES: There is no edema. Decreased pulses in the radials and dorsalis pedis bilaterally. NEUROLOGICAL: He is awake, alert, responsive, and does not appear to be in any kind of respiratory distress. LABORATORY AND DIAGNOSTIC DATA: EKG shows normal sinus rhythm, normal QRS axis, some nonspecific T-wave changes, possibly in V5 and V6 and maybe in lead V1. His blood tests, he has white count of 10.8, hemoglobin 15.5, and platelet count of 218,000. His sodium is 139, potassium 4.3, chloride of 105, bicarb 27, BUN of 25, creatinine 1.4, and glucose of 107. His proBNP is 806 and troponin is 0.191, at least one checked at 12 o'clock. He has had a chest x-ray that was performed today and showed mild basilar atelectasis and he did have a V/Q scan that was performed today and shows low probability for pulmonary embolism. ASSESSMENT AND PLAN: 1. History of recent orthopnea. 2. Abnormal cardiac enzymes. 3. Aortic stenosis. 4. Severe coronary artery calcification with calcium score of 7000 in 2013. 5. Atypical chest pain. 6. History of hyperlipidemia. 7. Peripheral vascular disease with decreased pulses in the lower extremities bilaterally. . Dr. Dias, this patient was seen in cardiac consultation. The patient's pain is certainly a concern especially in light of the fact that he has abnormal cardiac enzymes of mild degree. Repeat cardiac enzymes will be ordered for tonight and tomorrow morning. An echocardiogram should be ordered. I am concerned that he may have actually progressive aortic stenosis. Of note, his prior echocardiogram that was performed in my office in 2016 showed an ejection fraction of 60% to 65% with mild aortic regurgitation with a peak aortic gradient of 40 mmHg and some mild diastolic relaxation abnormalities, this was 3 years ago, and I am not sure if that may have progressed over the past few years. He should be treated with a combination of aspirin and continued on statins for the time being. His blood pressure should be controlled with the use of beta-blockers if possible. He will require further imaging and/or possibly even invasive evaluation of his coronary systems if he does agree to. He requires vascular evaluation at some point as well depending on the results of his testing. Oni Sutherland M.D. DR: Emmy JOB#: [id number] CC:
[2019-03-03] MEDS ORDERED: Levothyroxine 25mcg tab ORAL SCH (06:30)
[2019-03-03 06:44] LABS: EOSINOPHILS % (AUTO) 3.2 % (0.0-3.0); HEMATOCRIT 46.7 % (42.0-52.0); HEMOGLOBIN 15.8 G/DL (14.2-18.0); LYMPHOCYTES % (AUTO) 22.1 % (20.0-45.0); MEAN CORPUSCULAR VOLUME 89 FL (80-99); MONOCYTES % (AUTO) 7.8 % (1.0-10.0); NEUTROPHILS % (AUTO) 65.9 % (45.0-75.0); PLATELET COUNT 239 K/UL (150-450); RED BLOOD COUNT 5.26 M/UL (4.70-6.10); RED CELL DISTRIBUTION WIDTH 12.6 % (11.6-14.8)
--- NOTE | 2019-03-03 07:07 | NUR ---
Received pt and report from Regina RN resting in bed with open eyes. no c/o pain or acute distress noted at this time. patient a/o x4 Bed in the lowest position and locked, call light and frequent used objects are within reach. iv intact and patent. Will continue to monitor
[2019-03-03 07:32] LABS: ALANINE AMINOTRANSFERASE 19 U/L (12-78); ALBUMIN 3.6 G/DL (3.4-5.0); ALKALINE PHOSPHATASE 46 U/L (46-116); ANION GAP 8 mmol/L (5-15); ASPARTATE AMINO TRANSFERASE 23 U/L (15-37); BLOOD UREA NITROGEN 24 mg/dL (7-18); CALCIUM 9.6 MG/DL (8.5-10.1); CARBON DIOXIDE 26 MMOL/L (21-32); CHLORIDE 102 MMOL/L (98-107); CHOLESTEROL 129 MG/DL (< 200); CREATINE KINASE 82 U/L (26-308); CREATININE 1.4 MG/DL (0.55-1.30); GAMMA GLUTAMYL TRANSPEPTIDASE 15 U/L (5-85); HDL CHOLESTEROL 53 MG/DL (40-60); PHOSPHORUS 3.9 MG/DL (2.5-4.9); POTASSIUM 3.9 MMOL/L (3.5-5.1); SODIUM 136 MMOL/L (136-145); TRIGLYCERIDES 88 MG/DL (30-150)
[2019-03-03 07:43] LABS: BILIRUBIN,TOTAL 0.7 MG/DL (0.2-1.0)
--- NOTE | 2019-03-03 08:01 | NUR ---
HAND-OFF: Report given to JUDY Carlson.
[2019-03-03 08:05] VITALS: BP 127/83
[2019-03-03 08:10] VITALS: BP 127/83
[2019-03-03] MEDS: Metoprolol Tartrate 12.5mg TAB ORAL SCH (08:10)
[2019-03-03] MEDS: Lisinopril 20mg tab ORAL SCH (08:10)
[2019-03-03] MEDS ORDERED: Aspirin EC 81mg tab ORAL SCH (09:00)
--- NOTE | 2019-03-03 11:44 | Discharge Instructions ---
Discharge Instructions Discharge Instructions Follow up with: Dr Sutherland Follow Up Orders follow up with Dr Sutherland on Wednesday for Cardiac cath arrangements instraucted to increase Crestor and ASA dose and add Toprolxl 25/day For Congestive Heart Failure Reminder Report to your physician any weight gain of 5 pounds or more in one week. Issa Dias MD Mar 03, 2019 11:44
[2019-03-03] MEDS ORDERED: PRINIVIL20 MG ORAL (11:46)
[2019-03-03] MEDS ORDERED: LOPRESSOR25 M1 ORAL (11:46)
--- NOTE | 2019-03-03 11:59 | General Progress Note ---
Assessment/Plan Problem List: (1) ACS (acute coronary syndrome) ICD Codes: I24.9 - Acute ischemic heart disease, unspecified SNOMED: 506186449 (2) Aortic stenosis, severe ICD Codes: I35.0 - Nonrheumatic aortic (valve) stenosis SNOMED: 70376608 (3) CKD (chronic kidney disease) ICD Codes: N18.9 - Chronic kidney disease, unspecified SNOMED: 128620029 (4) HTN (hypertension) ICD Codes: I10 - Essential (primary) hypertension SNOMED: 11167844 Status: stable Assessment/Plan: Dc home- or patient signs ama!! Same meds + lopressor and higher dose of ASA and Crestor fu with cardiology for Cath Subjective Date patient seen: Mar 03, 2019 ROS Limited/Unobtainable: No Allergies: Coded Allergies: No Known Allergies (Verified Allergy, Mild, 12/18/08) All Systems: reviewed and negative except above Subjective anxious to go home Objective Last 24 Hour Vital Signs Date Time Temp Pulse Resp B/P (MAP) Pulse Ox O2 Delivery O2 Flow Rate FiO2 03/03/19 09:00 Room Air 03/03/19 08:10 88 127/83 03/03/19 08:10 127/83 03/03/19 08:10 88 127/83 03/03/19 08:05 97.3 88 20 127/83 (98) 95 03/03/19 04:00 77 03/03/19 00:00 73 03/03/19 00:00 97.9 69 18 115/69 (84) 95 03/02/19 21:11 81 146/65 03/02/19 21:00 Room Air 03/02/19 20:00 83 03/02/19 20:00 97.4 81 18 146/65 (92) 94 03/02/19 17:04 148/88 03/02/19 16:57 97.6 85 17 148/88 (108) 94 03/02/19 16:00 77 03/02/19 15:49 Room Air 03/02/19 15:00 97.9 80 15 128/87 100 Room Air 03/02/19 13:13 98.2 76 19 134/83 100 Room Air Intake and Output 03/02/19 03/03/19 19:00 07:00 Intake Total 220 ml Balance 220 ml Intake Oral 220 ml # Voids 2 2 Current Medications Medications (Trade) Dose Ordered Sig/Rekha Route PRN Reason Start Time Stop Time Status Last Admin Dose Admin Acetaminophen/ Hydrocodone Bitart ([place] 5/325) 1 tab Q8H PRN ORAL PAIN 4-10 03/02/19 15:15 03/09/19 15:14 Allopurinol (Allopurinol) 300 mg DAILY ORAL 03/03/19 09:00 04/02/19 08:59 03/03/19 08:10 Amlodipine Besylate (Norvasc) 5 mg DAILY ORAL 03/03/19 09:00 04/02/19 08:59 03/03/19 08:10 Aspirin (Ecotrin) 81 mg DAILY ORAL 03/03/19 09:00 04/02/19 08:59 03/03/19 08:11 Atorvastatin Calcium (Lipitor) 80 mg BEDTIME ORAL 03/02/19 21:00 04/01/19 20:59 03/02/19 21:12 Levothyroxine Sodium (Synthroid) 25 mcg DAILY@0630 ORAL 03/03/19 06:30 04/02/19 06:29 03/03/19 06:16 Lisinopril (Prinivil) 20 mg DAILY ORAL 03/04/19 09:00 04/01/19 17:59 Metoprolol Tartrate (Lopressor) 12.5 mg Q12HR ORAL 03/02/19 21:00 04/01/19 20:59 03/03/19 08:10 Nitroglycerin (Ntg) 0.4 mg Q5MIN X 3 DOSES PRN SL Prn Chest Pain 03/02/19 20:30 04/01/19 20:29 Laboratory Tests 03/02/19 12:02: White Blood Count 10.8, Red Blood Count 5.16, Hemoglobin 15.5, Hematocrit 46.2, Mean Corpuscular Volume 90, Mean Corpuscular Hemoglobin 30.1, Mean Corpuscular Hemoglobin Concent 33.6, Red Cell Distribution Width 12.8, Platelet Count 218, Mean Platelet Volume 7.1, Neutrophils (%) (Auto) 69.6, Lymphocytes (%) (Auto) 18.8L, Monocytes (%) (Auto) 8.0, Eosinophils (%) (Auto) 2.7, Basophils (%) (Auto ) 1.0, Sodium Level 139, Potassium Level 4.3, Chloride Level 105, Carbon Dioxide Level 27, Anion Gap 7, Blood Urea Nitrogen 25H, Creatinine 1.4H, Estimat Glomerular Filtration Rate 50.1, Glucose Level 107H, Calcium Level 9.5, Total Bilirubin 0.4, Aspartate Amino Transf (AST/SGOT) 22, Alanine Aminotransferase (ALT/SGPT) 23, Alkaline Phosphatase 52, Total Creatine Kinase 97, Creatine Kinase MB 2.0, Creatine Kinase MB Relative Index 2.0, Troponin I 0.191H, Pro-B-Type Natriuretic Peptide 806H, Total Protein 7.2, Albumin 3.3L, Globulin 3.9, Albumin/Globulin Ratio 0.8L 03/02/19 20:35: Total Creatine Kinase 106, Troponin I 0.204H 03/02/19 21:10: Urine Color Pale yellow, Urine Appearance Clear, Urine pH 6, Urine Specific [place] 1.010, Urine Protein Negative, Urine Glucose (UA) Negative, Urine Ketones Negative, Urine Blood Negative, Urine Nitrite Negative, Urine Bilirubin Negative, Urine Urobilinogen Normal, Urine Leukocyte Esterase Negative, Urine RBC 0-2H, Urine WBC 0, Urine Squamous Epithelial Cells Occasional, Urine Bacteria None, Urine Random Sodium 92 03/03/19 05:58: White Blood Count 11.0H, Red Blood Count 5.26, Hemoglobin 15.8, Hematocrit 46.7 , Mean Corpuscular Volume 89, Mean Corpuscular Hemoglobin 30.1, Mean Corpuscular Hemoglobin Concent 33.8, Red Cell Distribution Width 12.6, Platelet Count 239, Mean Platelet Volume 6.7, Neutrophils (%) (Auto) 65.9, Lymphocytes (% ) (Auto) 22.1, Monocytes (%) (Auto) 7.8, Eosinophils (%) (Auto) 3.2H, Basophils (%) (Auto) 1.0, Sodium Level 136, Potassium Level 3.9, Chloride Level 102, Carbon Dioxide Level 26, Anion Gap 8, Blood Urea Nitrogen 24H, Creatinine 1.4H, Estimat Glomerular Filtration Rate 50.1, Glucose Level 109H, Calcium Level 9.6, Total Bilirubin 0.7, Aspartate Amino Transf (AST/SGOT) 23, Alanine Aminotransferase (ALT/SGPT) 19, Alkaline Phosphatase 46, Total Creatine Kinase 82, Troponin I 0.174H, Pro-B-Type Natriuretic Peptide 753H, Total Protein 7.3, Albumin 3.6, Globulin 3.7, Albumin/Globulin Ratio 1.0, Hemoglobin A1c 5.7, Uric Acid 8.0H, Phosphorus Level 3.9, Magnesium Level 1.6L, Gamma Glutamyl Transpeptidase 15, C-Reactive Protein, Quantitative 1.3H, Triglycerides Level 88 , Cholesterol Level 129, LDL Cholesterol 68, HDL Cholesterol 53, Cholesterol/ HDL Ratio 2.4L, Thyroid Stimulating Hormone (TSH) 3.524 Height (Feet): 5 Height (Inches): 10.00 Weight (Pounds): 190 General Appearance: no apparent distress Neck: supple Cardiovascular: normal rate Respiratory/Chest: decreased breath sounds Abdomen: soft Issa Dias MD Mar 03, 2019 11:59
--- NOTE | 2019-03-03 14:05 | NUR ---
NURSE NOTES: patient discharged with all his belonging as ordered vital signs stable
--- NOTE | 2019-03-03 15:14 | NUR ---
CASE MANAGEMENT:REVIEW 68 YR OLD MALE FROM HOME TO ER CC: SOB SI: ACS. DYSPNEA 97.9 84 22 148/84 95% ON RA TROPONIN(+) 0.191 AND 0.204 IS: ASA PO CHEST XRAY VQ SCAN : TO TELEMETRY IS: LISINOPRIL PO QD NORVASC PO QD ASA PO QD LOPRESSOR PO Q12
--- NOTE | 2019-03-03 15:40 | Cardiology Report ---
APPROVED REPORT EXAM: Two-dimensional and M-mode echocardiogram with Doppler and color Doppler. INDICATION Congestive Heart Failure M-Mode DIMENSIONS IVSd1.3 (0.7-1.1cm)Left Atrium (MM)4.6 (1.6-4.0cm) LVDd5.1 (3.5-5.6cm)Aortic Root2.2 (2.0-3.7cm) PWd1.4 (0.7-1.1cm)Aortic Cusp Exc.1.0 (1.5-2.0cm) LVDs3.5 (2.5-4.0cm) PWs1.4 cm Normal left ventricular chamber size, systolic function and wall motion. Left ventricular ejection fraction estimated to be 55%. Mild left ventricular hypertrophy. Anterior Echo-free space, may be due to pericardial fat or effusion. All other cardiac chamber sizes are within normal limits. Aortic valve calcification with decreased cusp excursion. Thickened mitral valve leaflets with normal excursion. Mitral annulus and aortic root calcification. Pulmonic valve not well visualized. Normal tricuspid valve structure. IVC at 2.2 cm with physiologic collapse. A color flow and spectral Doppler study was performed and revealed: Moderate aortic regurgitation. Peak aortic valve gradient of 62 mm Hg and a mean of 45mmHg. Aortic valve area is calculated at 0.9cm2 by continuity equation C/W severe aortic stenosis. Mild mitral regurgitation. Mitral diastolic velocities suggest LV pseudo-nomral physiology c/w moderate LV diastolic dysfunction (Grade II). High E/E' ratio is suggestive of elevated intracardiac filling pressure. Mild tricuspid regurgitation. Tricuspid systolic velocities suggests peak right ventricular systolic pressure of 42mmHg, consistent with mild pulmonary hypertension. Pulmonic regurgitation present.
--- NOTE | 2019-03-03 15:48 | Cardiology Report ---
APPROVED REPORT EKG Measurement Heart [id number] [place] 162P30 [id number] Normal sinus rhythm Possible Lateral infarct, age undetermined Abnormal ECG
--- NOTE | 2019-03-03 15:56 | Cardiology Report ---
APPROVED REPORT EKG Measurement Heart [id number] 162P29 [id number] Normal sinus rhythm Possible Left atrial enlargement Nonspecific T wave abnormality Abnormal ECG
--- NOTE | 2019-03-03 17:15 | History and Physical Report ---
DATE OF ADMISSION: 03/02/2019 HISTORY AND PHYSICAL AND DISCHARGE NOTE HISTORY OF PRESENT ILLNESS: The patient is a 68-year-old male and has been a patient of mine for many years. 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 All of a sudden, he developed sudden onset of shortness of breath to the point that he stated that he could not finish his talking. He however managed to go home, but all night he could not lay down flat and he was more comfortable in sitting position. He denied having any alcoholic drink. He does not smoke and he does not use any kind of recreation drugs and at that time, he did not related to me that he was anxious for any reason. Upon examination in the office, I found him to have some right base crackles and because he was giving vague history of chest pain, I insisted that he should go to emergency room for further blood work, EKG, and lung and cardiac workup. However, the patient, who had appointments for employment refused to go to emergency room on that day and also next day; however, showed up to emergency room on March 02 around noon time where in the emergency room here at [place], he was evaluated by and he noted to have mild elevation of BNP and a creatinine of 1.4, which has been stable for the past few months and also troponin level, which was 0.191. The patient accepted to be admitted to the hospital for further workup. His medication was continued. Dr. Sutherland, his transportation manager, who has seen him before was called on consult. His medication continued. Aspirin and Lopressor was added to the medication. The patient underwent a V/Q lung scan, which had low probability of pulmonary emboli. The patient also had a chest x-ray, which showed just mild basal atelectasis. A 2D echocardiogram was done today, which showed aortic stenosis and ejection fraction of 55%. After consultation with Dr. Sutherland and subsequently discussion with the patient, it was decided due to the fact that the patient would like to sign AMA because he is impatient about what is being done at the [facility]. It was decided to discharge the patient home with the idea to arrange for outpatient cardiac catheterization for evaluation of his coronary arteries and also aortic valve at the higher level center. Upon discharge, the patient's vital signs are stable, afebrile. Blood pressure 127/83, pulse rate of 88. The patient does not have any chest discomfort or shortness of breath. MEDICATIONS ON DISCHARGE: Allopurinol 300 mg a day, amlodipine 5 mg a day, aspirin increased to 325 mg a day, Crestor 40 mg a day, Synthroid 25 mcg a day, lisinopril 20 mg a day, and metoprolol-XL 25 mg once a day and pain medication are the patient's medications. FINAL DIAGNOSES: For this patient are coronary artery disease with cardiac ischemia, aortic stenosis, history of hypertension, history of high lipids, and history of diabetes type 2. Discharge planning home with followup with Dr. Sutherland for cardiac catheterization. Issa Dias M.D. DR: Emerson JOB#: [id number] CC:
[2019-03-04] MEDS ORDERED: Lisinopril 20mg tab ORAL SCH (09:00)
== END 2019-03-03 12:30 | disposition home or self-care (01) | DRG 303 ==
LOC: EMR 12:20 → 2E 13:15 → EDBEDREQ 13:21 → 2E 18:01
DX: I25.10 Atherosclerotic heart disease of native coronary artery without angina pectoris (principal); I25.84 Coronary atherosclerosis due to calcified coronary lesion; I25.9 Chronic ischemic heart disease, unspecified; I35.0 Nonrheumatic aortic (valve) stenosis; R07.89 Other chest pain; I10 Essential (primary) hypertension; E78.5 Hyperlipidemia, unspecified; E11.9 Type 2 diabetes mellitus without complications; E03.9 Hypothyroidism, unspecified; Z86.73 Personal history of transient ischemic attack (TIA), and cerebral infarction without residual deficits; Z87.891 Personal history of nicotine dependence; R74.8 Abnormal levels of other serum enzymes; I73.9 Peripheral vascular disease, unspecified
CPT/HCPCS: 36415; 71045; 78579; 78580; 80053; 80061; 81001; 82550; 82553; 82977; 83036; 83735; 83880; 84100; 84300; 84443; 84484; 84550; 85025; 86140; 93005; 93306; 99285; A9503